=== PATIENT | male | born 1965 ===

== ENCOUNTER 2019-08-14 05:35 | Emergency (ER) | payer OTHER ==
[~2019-08-14] VITALS: Ht 195.6 cm; Wt 145.4 kg
[2019-08-14] MEDS ORDERED: MIDAZOLAM HCL 2 MG/2 ML VIAL ONE (05:53)
[2019-08-14] MEDS ORDERED: RAPID SEQUENCE KIT [RSI] 1 EACH KIT ONE (05:53)
[2019-08-14] MEDS ORDERED: ROCURONIUM BROMIDE 10 MG/ML 5 ML VIAL ONE (06:00)
[2019-08-14] MEDS ORDERED: FentaNYL CITRATE-PF 100 MCG/2 ML VIAL ONE (06:02)
[2019-08-14] MEDS ORDERED: ACETAMINOPHEN 325 MG TABLET PO PRN ×2 (06:30→07:30)
[2019-08-14] MEDS ORDERED: ONDANSETRON HCL 4 MG/2 ML VIAL IVP PRN (06:30)
[2019-08-14] MEDS ORDERED: ACETAMINOPHEN 650 MG RECTAL SUPPOSITORY PR ONE (06:34)
[2019-08-14] MEDS ORDERED: PROPOFOL 1000 MG/ISO-OSM 100 ML IV PRN ×2 (07:00→07:12)
[2019-08-14 07:04] LABS: BASOPHILS % (AUTO) 0.7 % (0.0-2.0); EOSINOPHILS % (AUTO) 7.1 % (1.0-6.0); HEMOGLOBIN 7.2 g/dL (13.5-17.5); LYMPHOCYTES # (AUTO) 0.2 K/uL (1.0-4.8); LYMPHOCYTES % (AUTO) 3.3 % (22.0-44.0); MEAN CORPUSCULAR HEMOGLOBIN 39.9 pg (26.0-34.0); MEAN CORPUSCULAR HGB CONC 36.7 G/dL (31.0-37.0); MEAN CORPUSCULAR VOLUME 109 fL (80-100); MONOCYTES # (AUTO) 0.1 K/uL (0.1-1.0); MONOCYTES % (AUTO) 2.5 % (2.0-9.0); NEUTROPHILS # (AUTO) 4.3 K/uL (1.8-7.7); PLATELET COUNT (AUTO) 104 K/uL (150-450); RED CELL DISTRIBUTION WIDTH 17.8 % (11.5-14.5)
[2019-08-14 07:23] LABS: CREATININE 15.44 mg/dL (0.60-1.30); LACTIC ACID 2.3 mmol/L (0.4-2.0); POTASSIUM 5.8 mmol/L (3.5-5.1)
[2019-08-14] MEDS ORDERED: AZITHROMYCIN 500 MG/NS 250 ML IV SCH (07:30)
[2019-08-14 08:02] LABS: ALBUMIN 3.1 g/dL (3.4-5.0); BILIRUBIN,TOTAL 0.9 mg/dL (0.1-1.0); C-REACTIVE PROTEIN QUANT 7.79 mg/dL (0.00-0.30); MAGNESIUM 2.1 mg/dL (1.80-2.40); TOTAL PROTEIN, SERUM 7.1 g/dL (6.4-8.2)
[2019-08-14 08:10] LABS: HEMATOCRIT 19.5 % (41-53)
[2019-08-14 08:11] LABS: NEUTROPHILS % (AUTO) 86.4 % (40.0-70.0)
[2019-08-14 08:35] LABS: ABG A-A DIFF O2 586.2 mmHg (10-20.0); ABG BASE EXCESS 0.4 mmol/L (-2.0-3.0); ABG HCO3 24.6 mmol/L (22.0-26.0); ABG METHEMOGLOBIN 0.2 % (0.0-1.5); ABG OXYGEN CONTENT 9.7 mL/dL (15.0-23.0); ABG OXYHEMOGLOBIN 88.9 % (94.0-100.0); ABG PCO2 51 mmHg (35-45); ABG PH 7.329 (7.35-7.450); ABG TOTAL HEMOGLOBIN 7.7 G/dL (12.0-18.0); PO2, ARTERIAL BG 71.9 mmHg (84.0-92.0); SITE, BLOOD GAS RT BRACHIAL; SOURCE, BLOOD GAS ARTERIAL
[2019-08-14 08:36] LABS: D-DIMER 2.24 mg/L FEU (0.00-0.50); INR 1.1 (0.9-1.1)
[2019-08-14 08:36] LABS: O2 DEVICE,BLOOD GAS VENTILATOR (ROOM AIR); PEEP,BG 15 cm H2O; SPONTANEOUS VT, BG 459 ml; VT, ABG 500 ml
[2019-08-14 08:40] LABS: APPEARANCE,URINE CLOUDY (CLEAR); BILIRUBIN,URINE NEGATIVE (NEGATIVE); GLUCOSE, URINE (UA) NEGATIVE (NEGATIVE); KETONES,URINE NEGATIVE (NEGATIVE); LEUKOCYTE ESTERASE ,URINE NEGATIVE (NEGATIVE); NITRATE,URINE NEGATIVE (NEGATIVE); OCCULT BLOOD,URINE MODERATE (NEGATIVE); PH,URINE 8.5 (5.0-8.0); PROTEIN,URINE SEE CONFIRM (NEGATIVE); UROBILINOGEN,URINE 0.2 mg/dL (<=1.0)
[2019-08-14 08:57] LABS: RBC,URINE 51-100 /HPF (0-2); SULFOSALICYLIC ACID,URINE 3+ (Negative)
[2019-08-14 08:58] LABS: BACTERIA,URINE Few /HPF (None Seen); RENAL EPITHELIAL CELLS,URINE Rare /LPF (None Seen); SQUAMOUS EPITHELIAL CELL,UR Few /LPF (None Seen); WBC,URINE 0-2 /HPF (0-5)
[2019-08-14] MEDS ORDERED: HEPARIN SODIUM,PORCINE 5,000 UNITS/ML VIAL SQ SCH (09:00)
[2019-08-14] MEDS ORDERED: DOCUSATE SODIUM 100 MG CAPSULE PO SCH (09:00)
[2019-08-14] MEDS ORDERED: MIDAZOLAM HCL 100 MG in DEXTROSE 5%-WATER 180 ML IV PRN ×2 (09:30→13:45)
[2019-08-14] MEDS ORDERED: FentaNYL CITRATE PF 500 MCG in DEXTROSE 5%-WATER 90 ML IV PRN (09:30)
[2019-08-14] MEDS ORDERED: DOPamine HCL 400 MG/D5%-WATER 250 ML IV ONE ×2 (10:16→13:14)
[2019-08-14] MEDS ORDERED: NOREPINEPHRINE 4 MG/D5%-WATER 250 ML IV PRN (10:30)
[2019-08-14] MEDS ORDERED: DOPamine HCL 400 MG/D5%-WATER 250 ML IV PRN (10:30)
[2019-08-14] MEDS ORDERED: PROPOFOL 1000 MG/ISO-OSM 100 ML IV ONE (13:09)
[2019-08-14 14:15] VITALS: BP 156/71
[2019-08-14] MEDS ORDERED: SODIUM CHLORIDE 0.9% 500 ML IV ONE (14:53)
== END 2019-08-14 15:50 | disposition short-term general hospital (02) ==
LOC: EMS 05:36
DX: U07.1 COVID-19 (principal); J96.91 Respiratory failure, unspecified with hypoxia; E87.5 Hyperkalemia; I95.9 Hypotension, unspecified; D69.6 Thrombocytopenia, unspecified; D64.9 Anemia, unspecified; N18.6 End stage renal disease; R79.89 Other specified abnormal findings of blood chemistry; R91.8 Other nonspecific abnormal finding of lung field; Z99.2 Dependence on renal dialysis
CPT/HCPCS: 31500; 36415; 36556; 36600; 71045; 80053; 81001; 82550; 82728; 82805; 83605; 83735; 83880; 84484; 85025; 85379; 85384; 85610; 85730; 86140; 93005; 99291; 99292; J0456; J1265; J1644; J2250; J2704; J3010 ×2; J3490; J7040; J7060; 51702; 94002